=== PATIENT | male | born 1975 | race African-American/Black ===

== ENCOUNTER 2022-08-25 15:00 | Emergency (ER) | payer MEDICAID ==
[~2022-08-25] VITALS: Ht 193 cm; Wt 125.0 kg
[2022-08-25] MEDS ORDERED: normal saline 1000ML IV soln IV ONE (15:10)
[2022-08-25] MEDS ORDERED: ipratropium/albuterol 3ml nebule NEB ONE (15:10)
[2022-08-25] MEDS ORDERED: acetaminophen 325mg tablet PO ONE (15:10)
[2022-08-25 15:35] LABS: BASOPHILS % (AUTO) 0.2 % (0-1); EOSINOPHILS # (AUTO) 0.5 X10'3 (0-0.9); EOSINOPHILS % (AUTO) 3.1 % (0-6); HEMATOCRIT 39.6 % (42.0-52.0); HEMOGLOBIN 13.4 g/dl (14.0-17.9); LYMPHOCYTES # (AUTO) 1.1 X10'3 (1.1-4.8); LYMPHOCYTES % (AUTO) 7.4 % (21-51); MEAN CORPUSCULAR HEMOGLOBIN 30.1 PG (27.0-31.0); MEAN CORPUSCULAR HGB CONC 33.9 g/dL (33.0-36.5); MEAN CORPUSCULAR VOLUME 88.8 FL (78-98); MEAN PLATELET VOLUME 7.5 FL (7.4-10.4); MONOCYTES # (AUTO) 1.2 X10'3 (0-0.9); MONOCYTES % (AUTO) 8.2 % (2-12); NEUTROPHILS # (AUTO) 12.1 X10'3 (1.8-7.7); NEUTROPHILS % (AUTO) 81.1 % (42-75); PLATELET COUNT 342 X10'3 (140-440); RED BLOOD COUNT 4.46 X10'6 (4.70-6.10); RED CELL DISTRIBUTION WIDTH 14.1 % (11.5-14.5); WHITE BLOOD COUNT 14.9 X10'3 (4.5-11.0)
[2022-08-25 15:45] LABS: ALANINE AMINOTRANSFERASE 84 U/L (12-78); ALBUMIN 2.3 G/DL (3.4-5.0); ALBUMIN/GLOBULIN RATIO 0.5 (1.1-1.5); ALKALINE PHOSPHATASE 75 IU/L (46-116); ANION GAP 13 (8-16); ASPARTATE AMINO TRANSFERASE 66 U/L (10-37); BILIRUBIN,TOTAL 0.3 MG/DL (0.1-1.0); BLOOD UREA NITROGEN 14 MG/DL (7-18); BUN/CREATININE RATIO 9.4 (10.0-20.0); CALCIUM 8.8 MG/DL (8.5-10.1); CHLORIDE 104 MMOL/L (99-107); CREATININE 1.49 MG/DL (0.60-1.10); GLUCOSE 133 MG/DL (70-104); POTASSIUM 3.6 MMOL/L (3.5-5.1); SODIUM 139 MMOL/L (135-145); TOTAL CARBON DIOXIDE 21.7 MMOL/L (24-32); TOTAL PROTEIN 7.3 G/DL (6.4-8.2); eGFR 50 ML/MIN
[2022-08-25] MEDS ORDERED: CefTRIAXone 2gm/D5W 50ml BAG 50 ML IV ONE (15:50)
[2022-08-25] MEDS ORDERED: azithromycin/NS 500mg/250ml 250 ML IV ONE (15:50)
[2022-08-25] MEDS ORDERED: albuterol 2.5 MG/3 ML nebule NEB ONE (16:25)
[2022-08-25] MEDS ORDERED: methylPREDNISolone sod succ 125mg/2ml vial IV ONE (16:25)
[2022-08-25] MEDS ORDERED: BUDE180A INH (17:28)
[2022-08-25] MEDS ORDERED: CEPH250T PO (17:28)
[2022-08-25] MEDS ORDERED: DOXY100C76 PO (17:28)
[2022-08-25] MEDS ORDERED: PRED20TA PO (17:28)
[2022-08-25] MEDS ORDERED: ALBU6.7H14 INH (17:28)
[2022-08-25] MEDS ORDERED: GUAI-647 PO (17:29)
[2022-08-25 18:46] VITALS: BP 131/86
== END 2022-08-25 18:54 | disposition home or self-care (01) ==
LOC: ER 15:02
DX: J18.9 Pneumonia, unspecified organism (principal); Z20.822 Contact with and (suspected) exposure to COVID-19; I10 Essential (primary) hypertension; F17.200 Nicotine dependence, unspecified, uncomplicated; Z72.89 Other problems related to lifestyle; Z79.899 Other long term (current) drug therapy
CPT/HCPCS: 36415; 71045; 80053; 83605; 84145; 85025; 87040; 87811; 94640; 96361; 96365; 96366; 96368; 96375; 99285; J0456; J0696; J2930; J7030; 94760